=== PATIENT | female | born 1975 | race Caucasian/White ===

== ENCOUNTER 2016-08-14 08:19 | Emergency (ER) | payer MEDICARE ==
[2016-08-14 09:00] LABS: BASOPHILS 0.7 % (0-2); EOSINOPHILS 1.2 % (0-7); HEMATOCRIT 39.3 % (36.0-48.0); HEMOGLOBIN 13.2 g/dL (12-16); IMMATURE GRANULOCYTES 0.1 % (0-5); LYMPHOCYTES 32.3 % (15-50); MCH 32.1 pg (26.0-34.0); MCHC 33.6 g/dL (31.0-37.0); MCV 95.6 fL (80.0-100.0); MEAN PLATELET VOLUME 10.2 fL (7.4-10.4); MONOCYTES 9.5 % (2-11); NEUTROPHILS 56.2 % (40-80); PLATELET COUNT 198 10x3/uL (130-400); RBC 4.11 10x6/uL (4.00-5.40); RDW 12.5 % (11.5-14.5); WBC 10.3 10x3/uL (4.8-10.8)
[2016-08-14 09:09] LABS: ALBUMIN 3.3 g/dL (3.4-5.0); ANION GAP 12.2 mmol/L (8-16); BILIRUBIN - TOTAL 0.23 mg/dL (0.2-1.3); CALCIUM 8.5 mg/dL (8.5-10.1); CARBON DIOXIDE 24.7 mmol/L (21.0-32.0); POTASSIUM - SERUM 3.9 mmol/L (3.5-5.1); PROTEIN - SERUM 6.8 g/dL (6.4-8.2)
[2016-08-14 09:55] LABS: COLOR YELLOW (YELLOW); UDS - AMPHET NEGATIVE QUAL (NEGATIVE); UDS - BARB POSITIVE QUAL (NEGATIVE); UDS - BENZO NEGATIVE QUAL (NEGATIVE); UDS - COCAINE NEGATIVE QUAL (NEGATIVE); UDS - METH NEGATIVE QUAL (NEGATIVE); UDS - OPIATE NEGATIVE QUAL (NEGATIVE); UDS - PCP NEGATIVE QUAL (NEGATIVE); UDS - THC NEGATIVE QUAL (NEGATIVE)
[2016-08-14 09:56] LABS: APPEARANCE HAZY (CLEAR); BACTERIA MODERATE /hpf (NONE SEEN); BILIRUBIN NEGATIVE (NEGATIVE); GLUCOSE NEGATIVE (NEGATIVE); KETONE NEGATIVE (NEGATIVE); LEUKOCYTE ESTERASE 2+ (NEGATIVE); MUCUS <1+ /lpf (NONE SEEN); NITRITE NEGATIVE (NEGATIVE); PROTEIN NEGATIVE (NEGATIVE); UROBILINOGEN NORMAL (NORMAL)
== END 2016-08-14 13:00 | disposition home or self-care (01) ==
LOC: D.ER 08:19
PROVIDERS: Emergency Medicine
DX: F32.9 Major depressive disorder, single episode, unspecified (principal); F13.10 Sedative, hypnotic or anxiolytic abuse, uncomplicated; F17.200 Nicotine dependence, unspecified, uncomplicated

== ENCOUNTER → 2019-04-07 10:20 | Outpatient (CLI) | payer MEDICARE ==
--- NOTE | 2019-04-07 11:30 | NUR ---
TIME OUT WAS PERFORMED AT 1120AM W DR [place]OVER AND MASSIMO MORILLO FOR A RT SHOULDER ARTHROGRAM
== END | disposition home or self-care (01) ==
LOC: D.RAD 03-25 14:00 → D.MRI 03-26 15:00 → D.RAD 03-29 13:30
PROVIDERS: ATTEND Nurse Practitioner Family
DX: M25.511 Pain in right shoulder (principal)

== ENCOUNTER 2019-08-09 17:09 | Emergency (ER) | payer MEDICARE ==
[~2019-08-09] VITALS: Ht 160 cm; Wt 72.7 kg
[~2019-08-09 17:09] MED LIST: ACETAMINOPHEN500 M1 PO; ALBUTEROL SULF8.5 GM INH; BUSPAR10 MG PO; CLARITIN 10 MG10 MG PO; HYDROXYZINE HCL50 MG PO; NEURONTIN600 MG PO; PERCOCET 10-321 EAC1 PO; PROTONIX40 MG PO; SINGULAIR10 MG PO; TORADOL10 MG PO; TRAZODONE HCL150 MG PO; TRILEPTAL300 MG PO; ULTRAM50 MG PO; VALIUM5 MG PO; ZOFRAN4 MG PO
[2019-08-09 17:27] VITALS: Ht 160 cm; Wt 72.7 kg
[2019-08-09] MEDS ORDERED: FLUTICASONE PRO16 GM NASAL (17:31)
[2019-08-09] MEDS ORDERED: BENTYL10 MG PO (17:31)
[2019-08-09] MEDS ORDERED: SINGULAIR10 MG PO (17:32)
[2019-08-09] MEDS ORDERED: PROTONIX40 MG PO (17:32)
[2019-08-09 17:54] LABS: BASOPHILS 0.3 % (0-2); EOSINOPHILS 0.6 % (0-7); HEMATOCRIT 38.1 % (36.0-48.0); HEMOGLOBIN 13.2 g/dL (12-16); IMMATURE GRANULOCYTES 0.3 % (0-5); LYMPHOCYTES 27.1 % (15-50); MCH 33.3 pg (26.0-34.0); MCHC 34.6 g/dL (31.0-37.0); MCV 96.2 fL (80.0-100.0); MEAN PLATELET VOLUME 9.1 fL (7.4-10.4); MONOCYTES 7.1 % (2-11); NEUTROPHILS 64.6 % (40-80); PLATELET COUNT 273 10x3/uL (130-400); RBC 3.96 10x6/uL (4.00-5.40); WBC 12.6 10x3/uL (4.8-10.8)
[2019-08-09 18:07] LABS: CALC OSMOLALITY 256 mosm/kg (275-300); CALCIUM 8.6 mg/dL (8.5-10.1); CARBON DIOXIDE 26.8 mmol/L (21.0-32.0); CHLORIDE - SERUM 97 mmol/L (98-107); CREATININE - SERUM 0.8 mg/dL (0.6-1.3); GLUCOSE 88 mg/dL (74-106); POTASSIUM - SERUM 3.8 mmol/L (3.5-5.1); SODIUM 130 mmol/L (136-145); UREA NITROGEN 4 mg/dL (7-18); eGFR NON AFRICAN AMERICAN 83 mL/min (90-120)
[2019-08-09 18:14] LABS: ALBUMIN 3.8 g/dL (3.4-5.0); ALKALINE PHOSPHATASE 118 U/L (30-120); ALT (SGPT) 25 U/L (10-68); BILIRUBIN - TOTAL 0.19 mg/dL (0.2-1.3); MAGNESIUM - SERUM 1.6 mg/dL (1.8-2.4); PROTEIN - SERUM 7.4 g/dL (6.4-8.2)
--- NOTE | 2019-08-09 19:00 | NUR ---
DR. CADE NOTIFIED AND SITTER ORDERED. SITTER AT BEDSIDE. NOTIFIED CHARGE NURSE AND ATTENDING IN REGARDS TO ASSESSMENT FINDINGS. RESOURCES GIVEN TO PT AND SAFETY PLAN INITIATED.
[2019-08-09 19:19] LABS: BILIRUBIN NEGATIVE (NEGATIVE); GLUCOSE NEGATIVE (NEGATIVE); KETONE NEGATIVE (NEGATIVE); NITRITE NEGATIVE (NEGATIVE); UROBILINOGEN NORMAL (NORMAL)
[2019-08-09 19:25] LABS: UDS - AMPHET NEGATIVE QUAL (NEGATIVE); UDS - BARB NEGATIVE QUAL (NEGATIVE); UDS - BENZO NEGATIVE QUAL (NEGATIVE); UDS - COCAINE NEGATIVE QUAL (NEGATIVE); UDS - OPIATE NEGATIVE QUAL (NEGATIVE); UDS - PCP NEGATIVE QUAL (NEGATIVE); UDS - THC NEGATIVE QUAL (NEGATIVE)
[2019-08-10 00:57] VITALS: BP 117/77
== END 2019-08-10 00:57 ==
LOC: D.ER 17:09
PROVIDERS: Family Medicine
DX: F31.9 Bipolar disorder, unspecified (principal); J44.9 Chronic obstructive pulmonary disease, unspecified; K21.9 Gastro-esophageal reflux disease without esophagitis; G62.9 Polyneuropathy, unspecified; R44.0 Auditory hallucinations; R44.1 Visual hallucinations

== ENCOUNTER 2019-11-10 20:34 | Emergency (ER) | payer MEDICARE ==
[~2019-11-10] VITALS: Ht 160 cm; Wt 81.6 kg
[~2019-11-10 20:34] MED LIST changes: +BENTYL10 MG PO; +FLUTICASONE PRO16 GM NASAL
[2019-11-10 20:51] VITALS: Ht 160 cm; Wt 81.6 kg
[2019-11-10 21:05] LABS: BASOPHILS 0.3 % (0-2); EOSINOPHILS 1.2 % (0-7); HEMATOCRIT 36.8 % (36.0-48.0); IMMATURE GRANULOCYTES 0.4 % (0-5); LYMPHOCYTES 35.5 % (15-50); MCH 32.9 pg (26.0-34.0); MCHC 35.3 g/dL (31.0-37.0); MCV 93.2 fL (80.0-100.0); MEAN PLATELET VOLUME 9.2 fL (7.4-10.4); MONOCYTES 7.5 % (2-11); NEUTROPHILS 55.1 % (40-80); PLATELET COUNT 222 10x3/uL (130-400); RBC 3.95 10x6/uL (4.00-5.40); RDW 11.9 % (11.5-14.5); WBC 9.9 10x3/uL (4.8-10.8)
[2019-11-10 21:06] LABS: NITRITE NEGATIVE (NEGATIVE)
[2019-11-10 21:07] LABS: BILIRUBIN NEGATIVE (NEGATIVE); GLUCOSE NEGATIVE (NEGATIVE); KETONE NEGATIVE (NEGATIVE); UROBILINOGEN NORMAL (NORMAL)
[2019-11-10 21:13] LABS: CALC OSMOLALITY 250 mosm/kg (275-300); CALCIUM 8.5 mg/dL (8.5-10.1); CARBON DIOXIDE 27.5 mmol/L (21.0-32.0); CHLORIDE - SERUM 93 mmol/L (98-107); CREATININE - SERUM 0.8 mg/dL (0.6-1.3); GLUCOSE 88 mg/dL (74-106); POTASSIUM - SERUM 3.4 mmol/L (3.5-5.1); SODIUM 127 mmol/L (136-145); UDS - AMPHET NEGATIVE QUAL (NEGATIVE); UDS - BARB NEGATIVE QUAL (NEGATIVE); UDS - BENZO NEGATIVE QUAL (NEGATIVE); UDS - COCAINE NEGATIVE QUAL (NEGATIVE); UDS - OPIATE NEGATIVE QUAL (NEGATIVE); UDS - PCP NEGATIVE QUAL (NEGATIVE); UDS - THC NEGATIVE QUAL (NEGATIVE); UREA NITROGEN 4 mg/dL (7-18); eGFR NON AFRICAN AMERICAN 83 mL/min (90-120)
[2019-11-10 21:20] LABS: ALBUMIN 3.5 g/dL (3.4-5.0); ALKALINE PHOSPHATASE 85 U/L (30-120); ALT (SGPT) 22 U/L (10-68); BILIRUBIN - TOTAL 0.24 mg/dL (0.2-1.3); MAGNESIUM - SERUM 1.7 mg/dL (1.8-2.4); PROTEIN - SERUM 6.7 g/dL (6.4-8.2)
--- NOTE | 2019-11-10 23:18 | NUR ---
DR. CADE NOTIFIED AND SITTER ORDERED. SITTER AT BEDSIDE. NOTIFIED CHARGE NURSE AND ATTENDING IN REGARDS TO ASSESSMENT FINDINGS. RESOURCES GIVEN TO PATIENT AND SAFETY PLAN INITIATED.
[2019-11-11 03:00] VITALS: BP 125/77
== END 2019-11-11 03:00 ==
LOC: D.ER 20:34
PROVIDERS: Emergency Medicine
DX: R45.851 Suicidal ideations (principal); F41.9 Anxiety disorder, unspecified; J44.9 Chronic obstructive pulmonary disease, unspecified; K21.9 Gastro-esophageal reflux disease without esophagitis; F32.9 Major depressive disorder, single episode, unspecified

== ENCOUNTER 2019-12-26 15:10 | Emergency (ER) | payer MEDICARE ==
[~2019-12-26] VITALS: Ht 160 cm; Wt 56.8 kg
[2019-12-26 15:16] VITALS: BP 116/87; Ht 160 cm; Wt 56.8 kg
[2019-12-26 15:42] LABS: BASOPHILS 0.4 % (0-2); EOSINOPHILS 0.4 % (0-7); HEMATOCRIT 39.2 % (36.0-48.0); HEMOGLOBIN 13.6 g/dL (12-16); IMMATURE GRANULOCYTES 0.1 % (0-5); MCH 32.4 pg (26.0-34.0); MCHC 34.7 g/dL (31.0-37.0); MCV 93.3 fL (80.0-100.0); MEAN PLATELET VOLUME 9.4 fL (7.4-10.4); MONOCYTES 6.9 % (2-11); NEUTROPHILS 67.2 % (40-80); PLATELET COUNT 213 10x3/uL (130-400); RDW 12.8 % (11.5-14.5); WBC 7.9 10x3/uL (4.8-10.8)
[2019-12-26 15:57] LABS: CALC OSMOLALITY 269 mosm/kg (275-300); CALCIUM 8.8 mg/dL (8.5-10.1); CARBON DIOXIDE 26.1 mmol/L (21.0-32.0); CHLORIDE - SERUM 103 mmol/L (98-107); CREATININE - SERUM 0.8 mg/dL (0.6-1.3); GLUCOSE 110 mg/dL (74-106); POTASSIUM - SERUM 3.2 mmol/L (3.5-5.1); SODIUM 135 mmol/L (136-145); UREA NITROGEN 9 mg/dL (7-18); eGFR NON AFRICAN AMERICAN 83 mL/min (90-120)
[2019-12-26 16:03] LABS: ALBUMIN 3.4 g/dL (3.4-5.0); ALKALINE PHOSPHATASE 83 U/L (30-120); ALT (SGPT) 13 U/L (10-68); BILIRUBIN - TOTAL 0.32 mg/dL (0.2-1.3); MAGNESIUM - SERUM 1.9 mg/dL (1.8-2.4); PROTEIN - SERUM 7.3 g/dL (6.4-8.2)
[2019-12-26 17:07] LABS: HCG URINE NEGATIVE (NEGATIVE)
[2019-12-26 17:14] LABS: BACTERIA MANY HPF (NONE SEEN); BILIRUBIN NEGATIVE (NEGATIVE); EPITHELIAL CELLS 0-5 /hpf (0-5); KETONE NEGATIVE (NEGATIVE); NITRITE POSITIVE (NEGATIVE); UROBILINOGEN NORMAL mg/dL (< 2)
[2019-12-26 17:17] LABS: UDS - AMPHET NEGATIVE QUAL (NEGATIVE); UDS - BARB NEGATIVE QUAL (NEGATIVE); UDS - BENZO NEGATIVE QUAL (NEGATIVE); UDS - COCAINE NEGATIVE QUAL (NEGATIVE); UDS - OPIATE POSITIVE QUAL (NEGATIVE); UDS - PCP NEGATIVE QUAL (NEGATIVE); UDS - THC NEGATIVE QUAL (NEGATIVE)
[2019-12-26] MEDS ORDERED: MACROBID100 MG PO (17:45)
[2019-12-26] MEDS ORDERED: KEFLEX500 MG PO (17:45)
[2019-12-29] MEDS ORDERED: VALIUM5 MG PO (14:59)
[2019-12-29] MEDS ORDERED: OMEPRAZOLE20 M1 PO (15:02)
[2019-12-29] MEDS ORDERED: VISTARIL50 MG PO (15:03)
[2019-12-29] MEDS ORDERED: IMODIUM2 MG PO (15:04)
[2019-12-29] MEDS ORDERED: CELEXA20 MG PO (15:07)
[2019-12-29] MEDS ORDERED: LITHIUM CARBON300 MG PO (15:10)
[2019-12-29] MEDS ORDERED: STRATTERA40 MG PO (15:12)
[2019-12-29] MEDS ORDERED: KEFLEX500 MG PO (15:18)
[2019-12-29] MEDS ORDERED: TOFRANIL25 MG PO (15:18)
[2019-12-29] MEDS ORDERED: GUAIFENESIN (15:21)
[2019-12-29] MEDS ORDERED: NICORETTE2 MG PO (15:22)
== END 2020-01-02 08:37 | disposition home or self-care (01) ==
LOC: D.ER 15:10
PROVIDERS: Family Medicine
DX: Z04.41 Encounter for examination and observation following alleged adult rape (principal); E87.6 Hypokalemia; F15.10 Other stimulant abuse, uncomplicated; N39.0 Urinary tract infection, site not specified; G62.9 Polyneuropathy, unspecified; J44.9 Chronic obstructive pulmonary disease, unspecified; K21.9 Gastro-esophageal reflux disease without esophagitis; Z72.0 Tobacco use

== ENCOUNTER 2019-12-29 12:48 | Emergency (ER) | payer MEDICARE ==
[~2019-12-29] VITALS: Ht 160 cm; Wt 63.6 kg
[~2019-12-29 12:48] MED LIST changes: +KEFLEX500 MG PO; +MACROBID100 MG PO
[2019-12-29 12:54] VITALS: Ht 160 cm; Wt 63.6 kg
[2019-12-29 13:42] LABS: BILIRUBIN NEGATIVE (NEGATIVE); KETONE NEGATIVE (NEGATIVE); NITRITE NEGATIVE (NEGATIVE); UROBILINOGEN NORMAL mg/dL (< 2)
[2019-12-29 13:43] LABS: BASOPHILS 0.3 % (0-2); EOSINOPHILS 0.3 % (0-7); HEMATOCRIT 39.8 % (36.0-48.0); HEMOGLOBIN 13.6 g/dL (12-16); IMMATURE GRANULOCYTES 0.3 % (0-5); LYMPHOCYTES 25.2 % (15-50); MCH 32.5 pg (26.0-34.0); MCHC 34.2 g/dL (31.0-37.0); MEAN PLATELET VOLUME 9.4 fL (7.4-10.4); MONOCYTES 6.2 % (2-11); NEUTROPHILS 67.7 % (40-80); PLATELET COUNT 213 10x3/uL (130-400); RBC 4.19 10x6/uL (4.00-5.40); RDW 12.6 % (11.5-14.5); WBC 7.1 10x3/uL (4.8-10.8)
[2019-12-29 13:51] LABS: UDS - AMPHET POSITIVE QUAL (NEGATIVE); UDS - BARB NEGATIVE QUAL (NEGATIVE); UDS - BENZO POSITIVE QUAL (NEGATIVE); UDS - COCAINE NEGATIVE QUAL (NEGATIVE); UDS - OPIATE NEGATIVE QUAL (NEGATIVE); UDS - PCP NEGATIVE QUAL (NEGATIVE); UDS - THC NEGATIVE QUAL (NEGATIVE)
[2019-12-29 13:56] LABS: CALC OSMOLALITY 273 mosm/kg (275-300); CALCIUM 8.7 mg/dL (8.5-10.1); CARBON DIOXIDE 26.5 mmol/L (21.0-32.0); CHLORIDE - SERUM 103 mmol/L (98-107); CREATININE - SERUM 0.7 mg/dL (0.6-1.3); GLUCOSE 120 mg/dL (74-106); POTASSIUM - SERUM 3.6 mmol/L (3.5-5.1); SODIUM 137 mmol/L (136-145); UREA NITROGEN 9 mg/dL (7-18); eGFR NON AFRICAN AMERICAN > 90 mL/min (90-120)
[2019-12-29 14:02] LABS: ALBUMIN 3.3 g/dL (3.4-5.0); ALKALINE PHOSPHATASE 75 U/L (30-120); ALT (SGPT) 16 U/L (10-68); BILIRUBIN - TOTAL 0.14 mg/dL (0.2-1.3); MAGNESIUM - SERUM 1.9 mg/dL (1.8-2.4); PROTEIN - SERUM 6.9 g/dL (6.4-8.2)
--- NOTE | 2019-12-29 14:07 | NUR ---
NOTIFIED AND SITTER ORDERED. SITTER IN OF SIGHT. NOTIFIED CHARGE NURSE AND ATTENDING IN REGARDS TO ASSESSMENT FINDINGS. RESOURCES GIVEN TO PT AND SAFETY PLAN INITIATED.
[2019-12-29] MEDS ORDERED: VALIUM5 MG PO (14:59)
[2019-12-29] MEDS ORDERED: OMEPRAZOLE20 M1 PO (15:02)
[2019-12-29] MEDS ORDERED: VISTARIL50 MG PO (15:03)
[2019-12-29] MEDS ORDERED: IMODIUM2 MG PO (15:04)
[2019-12-29] MEDS ORDERED: CELEXA20 MG PO (15:07)
[2019-12-29] MEDS ORDERED: LITHIUM CARBON300 MG PO (15:10)
[2019-12-29] MEDS ORDERED: STRATTERA40 MG PO (15:12)
[2019-12-29] MEDS ORDERED: TOFRANIL25 MG PO (15:18)
[2019-12-29] MEDS ORDERED: KEFLEX500 MG PO (15:18)
[2019-12-29] MEDS ORDERED: GUAIFENESIN (15:21)
[2019-12-29] MEDS ORDERED: NICORETTE2 MG PO (15:22)
[2019-12-30 10:42] VITALS: BP 118/78
== END 2019-12-30 10:42 ==
LOC: D.ER 12:48
PROVIDERS: Family Medicine
DX: R45.851 Suicidal ideations (principal); G62.9 Polyneuropathy, unspecified; J44.9 Chronic obstructive pulmonary disease, unspecified; K21.9 Gastro-esophageal reflux disease without esophagitis; Z72.0 Tobacco use